=== PATIENT | male | born 1955 | race Caucasian/White ===

== ENCOUNTER → 2017-04-06 | Day surgery (SDC) | payer OTHER ==
[~2017-04-06] VITALS: Ht 177.8 cm; Wt 83.9 kg
--- NOTE | 2017-04-06 14:39 | Operative Report ---
Operative/Inv Procedure Report Surgery Date: 04/06/17 Name of Procedure: right epididymal cyst excision Pre-Operative Diagnosis: right epididymal cyst 5cm Post-Operative Diagnosis: same Estimated Blood Loss: less than 50ml Surgeon/Solar Sales Representative And Assessor: Trudy Ambrose MD Anesthesia: laryngeal mask airway Specimens: right epididiymal cyst and fluid Complications: none Condition: stable Operative Indication: bothersome right epididymal cyst Operative/Procedure Note Note: Operative dictation on patient Josiah Chamorro. 8-year-old male with a several year history of an enlarging right epididymal cyst. He was quite bothered by it wished to have it excised. He was given the risks benefits and alternatives of the surgery and all questions were answered. He wished to proceed. Inset was signed in the holding area. Patient was brought to the operating room placed on the operating table in the supine position. Timeout was performed and IV antibiotics were infused. LMA anesthesia was begun and the patient was position. Genitalia were shaved and then he was prepped and draped in standard sterile fashion. 1% lidocaine with half percent Marcaine was injected into the inguinal cord. The epididymal cyst was easily visible and this was grasped and #15 blade was used to make an incision longitudinally. This cyst was carefully dissected free taking care not to puncture so that the dissection the easier. The cyst was delivered into the operative field outside of the scrotal sac. This was dissected free from the superior aspect of the testicle. Was able to be removed from the testicle and its entirety with this sac intact and the fluid inside. This was sent to pathology in formalin. Area was point coagulated and areas of active bleeding. Once all oozing was stopped the testicle was placed back into the scrotal sac. The UltraSling was closed with the 3-0 Vicryl running suture. This was followed by 3-0 chromic interrupted sutures. Bacitracin ointment was applied followed by a Xeroform dressing. Fluffs were then placed followed by a scrotal support. The sponge and needle count were correct and of the case. Patient tolerated procedure well and was transferred to the recovery room stable condition. Findings: 5cm right epididymal cyst Discharge Disposition: PACU
== END ==
LOC: STS 03-09 07:00
DX: N50.3 Cyst of epididymis (principal); K21.9 Gastro-esophageal reflux disease without esophagitis
CPT/HCPCS: 88304; J0131; J0690; J2250

== ENCOUNTER → 2017-05-29 | Day surgery (SDC) | payer OTHER ==
[~2017-05-29] VITALS: Ht 177.8 cm; Wt 83.9 kg
--- NOTE | 2017-05-29 07:06 | History & Physical Pre-Op ---
General Information and HPI History of Present Illness: Josiah is a 62-year-old male with a long-standing and worsening complaint of pain to his right foot. The patient has undergone an extended course conservative care, including shoe gear and activity modification, rest, immobilization and courses of NSAIDs. None of this is yielded him any significant relief. The patient presents today for preoperative surgical consultation. The patient was referred to our office from Josiah Stevens DPM. Allergies/Medications Allergies: Coded Allergies: No Known Allergies (05/28/17) Past History Medical History Gastrointestinal: GERD Surgical History Pertinent Surgical History: knee replacement Review of Systems Review of Systems: Unremarkable except for that noted in history of present illness Exam & Diagnostic Data Physical Exam: Lungs clear bilaterally. Heart sounds rate and rhythm regular. Lower extremity physical exam demonstrates intact pedal pulses bilaterally. Both dorsalis pedis and posterior tibial arteries are palpable bilaterally. Patient without any sensory motor deficits. Deep tendon reflexes grossly intact. Patient noted assuming pain with palpation to the dorsal aspect of the right foot. Range of motion through the second metatarsal phalangeal joint is limited and painful. Positive Mary sign noted to the interspace sedation with an underlying neuroma. Assessment/Plan As Ranked By This Provider Problem List: 1. Pain due to internal orthopedic prosthetic devices, implants and grafts, initial encounter Attending MD Review Statement Attending Statement Attending MD Statement: examined this patient
--- NOTE | 2017-05-29 08:18 | Operative Report ---
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 The patient isn't securely fastened to the operating table utilizing safety belt. After administration of IV sedation, 10 mL of 0.5% Marcaine plain was infiltrated about the patient's right ankle. Well-padded ankle tourniquet was packed about the patient's right lower extremity. 2 g of Ancef were delivered a recent times one dose. The right foot and ankle then scrubbed prepped and draped in usual aseptic manner. The right lower extremity was elevated to examine to limb, which point the ankle tourniquet inflated 250 mmHg. Attention directed dorsal aspect the right foot, where a curvilinear incision was made over the distal second interspace. The skin was signed 15 blade and carried down subtenons tissues. Dissection was then deepened to the distal surgical neck of the second metatarsal, where a screw was identified. Was then removed and passed from the operative field. Was sent for pathologic inspection. The capsule dorsally at the metatarsophalangeal joint was then dissected open and scar tissue was removed addition to synovitis about the joint. Attention was then directed to the second interspace, where the deep transverse intermetatarsal ligament was sectioned and distal stump of the morning of the neuroma was identified and passed from the operative field and sent for pathologic inspection. The open wound was then irrigated with copious Svensson normal sterile saline. The deep tissues reports a 4-0 Vicryl skin edges reapproximated 4-0 nylon.
== END ==
LOC: STS 02:41
DX: G57.61 Lesion of plantar nerve, right lower limb (principal); T84.84XA Pain due to internal orthopedic prosthetic devices, implants and grafts, initial encounter; M19.071 Primary osteoarthritis, right ankle and foot; Y79.8 Miscellaneous orthopedic devices associated with adverse incidents, not elsewhere classified
CPT/HCPCS: 88305; J0690; J1100; J1885; J2001; J2250